=== PATIENT | female | born 1955 | race Two or more races ===

== ENCOUNTER 2023-06-04 13:41 | Emergency (ER) | payer OTHER, BC ==
[~2023-06-04] VITALS: Ht 167.6 cm; Wt 68.0 kg
[2023-06-04] MEDS ORDERED: PROBIOTIC1 EAC7 PO (14:05)
[2023-06-04 17:41] LABS: HEMATOCRIT 43.7 % (36.0-45.00); MEAN CELL VOLUME 99.1 fL (80.00-100.00); MEAN CORPUSCULAR HEMOGLOBIN 34.1 pg (27.00-32.0); MEAN CORPUSCULAR HGB CONC 34.4 g/dl (32.0-36.0); PLATELET COUNT 206 K/uL (150-450); RED CELL DISTRIBUTION WIDTH 13.5 % (11.5-14.5)
[2023-06-04 18:34] LABS: CALCIUM 8.8 mg/dL (8.5-10.1); CREATININE SERUM 1.04 mg/dL (0.55-1.02); GFR 52.85; POTASSIUM 3.65 mEq/L (3.5-5.1)
[2023-06-04 18:45] LABS: ABG PH 7.426 (7.35-7.45); ABG PO2 92.8 mmHg (80-100); ABG pCO2 35.1 mmHg (35-45); BASE EXCESS -1.2 mmol/l; BICARBONATE 22.6 mmol/l (23-25); SaO2 97.4 %; Tco2 23.6 mmol/l; allen test SATISFACTORY; o2 21 %; puncture site RADIAL RIGHT
== END 2023-06-04 19:24 | disposition home or self-care (01) ==
LOC: ER 13:42
PROVIDERS: General Practice
DX: R05.8 Other specified cough (principal); Z91.041 Radiographic dye allergy status; Z88.8 Allergy status to other drugs, medicaments and biological substances
CPT/HCPCS: 36415; 71046; 82803; 94640; 96365; 96366; 99285; J2920; J7030